=== PATIENT | male | born 1950 | race Caucasian/White ===

== ENCOUNTER 2017-08-10 07:15 | Day surgery (SDC) | payer MEDICARE, OTHER ==
[~2017-08-10] VITALS: Ht 180.3 cm; Wt 86.5 kg
[2017-08-10] VITALS (11 sets, daily range): BP systolic 118–131; BP diastolic 62–85; PULSE 82–103; TEMP 97–97.1
[2017-08-10] MEDS ORDERED: GLUCOTROL 5M5 MG/TAB PO (07:41)
[2017-08-10] MEDS ORDERED: GLUCOPHAGE500 MG/TAB PO (07:42)
[2017-08-10] MEDS ORDERED: ZOCOR 40MG40 MG PO (07:43)
[2017-08-10] MEDS ORDERED: ALDACTONE 25MG25 M1 PO (07:44)
[2017-08-10] MEDS ORDERED: LASIX 20MG TABL20 MG PO (07:44)
[2017-08-10] MEDS ORDERED: LANOXIN 0.25M0.25 MG PO (07:45)
[2017-08-10] MEDS ORDERED: ZESTRIL2.5 MG PO (07:45)
[2017-08-10] MEDS ORDERED: ASPI325T6 PO (07:46)
[2017-08-10 07:47] LABS: HEMATOCRIT 37.6 % (42.0-52.0); MEAN CELL VOLUME 80 fl (80.0-100.0); MEAN CORPUSCULAR HEMOGLOBIN 25 pg (27.0-31.0); MEAN CORPUSCULAR HGB CONC 31 g/dl (33.0-37.0); MEAN PLATELET VOLUME 9.8 fl (7.4-10.4); PLATELET COUNT 302 K/mm3 (130-400); RED BLOOD COUNT 4.71 M/mm3 (4.20-5.60); REDCELL DISTRIBUTION WIDTH-CV 14.5 % (11.5-14.5)
[2017-08-10] MEDS ORDERED: LOPRESSOR 225 MG/TAB PO (07:47)
[2017-08-10] MEDS ORDERED: PROAIR HFA0.09 MG/AC IH (07:47)
[2017-08-10 07:48] LABS: HEMOGLOBIN 11.7 g/dl (13.5-18.0)
[2017-08-10 07:52] LABS: INR 1.2 (0.8-3.0); PROTHROMBIN TIME 14.5 SECONDS (9.7-12.8)
[2017-08-10 07:57] LABS: CALCIUM 9.5 mg/dL (8.4-10.2); CREATININE, serum 0.74 mg/dL (0.66-1.25); POTASSIUM 4.2 mmol/L (3.4-5.0)
== END 2017-08-10 13:53 | disposition home or self-care (01) ==
LOC: COL.CAR 07:15
PROVIDERS: Internal Medicine Interventional Cardiology
DX: I25.10 Atherosclerotic heart disease of native coronary artery without angina pectoris (principal); R07.9 Chest pain, unspecified; I50.22 Chronic systolic (congestive) heart failure; I50.1 Left ventricular failure, unspecified; Z95.1 Presence of aortocoronary bypass graft; N43.3 Hydrocele, unspecified; Z79.82 Long term (current) use of aspirin; Z86.72 Personal history of thrombophlebitis; Z87.891 Personal history of nicotine dependence; Z96.651 Presence of right artificial knee joint; Z95.811 Presence of heart assist device
CPT/HCPCS: J2250; J3010; Q9967